=== PATIENT | female | born 2000 | race Caucasian/White ===

== ENCOUNTER 2020-05-27 11:21 | Observation (INO) | payer OTHER ==
[~2020-05-27] VITALS: Ht 157.5 cm; Wt 104.3 kg
[2020-05-27] MEDS ORDERED: PNV91TAB8 PO (11:46)
[2020-05-27 12:17] VITALS: BP 128/58
== END 2020-05-27 14:35 | disposition home or self-care (01) ==
LOC: MLD 11:21
PROVIDERS: ADMIT Obstetrics & Gynecology; ATTEND Obstetrics & Gynecology
DX: Z03.818 Encounter for observation for suspected exposure to other biological agents ruled out (principal); O13.3 Gestational [pregnancy-induced] hypertension without significant proteinuria, third trimester; Z3A.39 39 weeks gestation of pregnancy
CPT/HCPCS: 76805; G0378; Q0092; U0003